=== PATIENT | female | born 1995 | race Caucasian/White ===

== ENCOUNTER 2016-05-11 14:59 | Emergency (ER) | payer OTHER ==
[2016-05-11 15:26] VITALS: BP 140/77
--- NOTE | 2016-05-11 15:48 | ED ---
Neck Pain - HPI Summary HPI Summary: 21 F w/ PMH of arthritis presents with neck pain for 2 weeks. She was thrown off her horse two weeks ago and landed on her right hip. She denies hitting her head, any headache after the incident, nausea or vomiting or LOC. She states that a day later she started to notice neck pain. The pain travels up the back of her neck and into her left shoulder. The pain is greatest off to the side of her neck. She denies any numbness or tingling. She denies any weakness into her arms. She has not taken anything for her pain. She saw her chiropractor yesterday and she states that made the pain worst. She has chronic lower back pain that she says remains unchanged. She denies any hip pain and has been able to ambulate without difficulty. She denies any loss of bowel or bladder or saddle anaesthesia. - History of Current Complaint Chief Complaint: ED Stated Complaint: NECK/BACK PAIN Time Seen by Provider: 05/11/16 15:37 Hx Last Menstrual Period: 05/05/14 Pain Intensity: 7 - Allergies/Home Medications Allergies/Adverse Reactions: Allergies Allergy/AdvReac Type Severity Reaction Status Date / Time Sumatriptan [From Imitrex] Allergy Severe "throat Verified 02/26/14 11:32 feels like it is closing" PMH/Surg Hx/FS Hx/Imm Hx Endocrine/Hematology History: Denies: Hx Diabetes Cardiovascular History: Denies: Hx Hypertension, Hx Pacemaker/ICD Respiratory History: Reports: Hx Asthma Sensory History: Denies: Hx Hearing Aid Psychiatric History: Denies: Hx Panic Disorder Infectious Disease History: No Infectious Disease History: Denies: Traveled Outside the [place] in Last 30 Days - Family History Known Family History: Negative: Cardiac Disease - Social History Alcohol Use: None Substance Use Type: Reports: None Substance Use Comment - Amount & Last Used: couple times per week Smoking Status (MU): Light Every Day Tobacco Smoker Type: Smokeless Tobacco Amount Used/How Often: 1 can per week Length of Time of Smoking/Using Tobacco: 2 months Have You Smoked in the Last Year: Yes Review of Systems Negative: Fever Negative: Chest Pain Negative: Shortness Of Breath Positive: Myalgia - neck pain All Other Systems Reviewed And Are Negative: Yes Physical Exam Triage Information Reviewed: Yes Vital Signs On Initial Exam: Initial Vitals Temp Pulse Resp BP Pulse Ox 99.3 F 88 14 140/77 100 05/11/16 15:10 05/11/16 15:10 05/11/16 15:10 05/11/16 15:10 05/11/16 15:10 Vital Signs Reviewed: Yes Skin: Positive: Warm, Dry Head/Face: Positive: Normal Head/Face Inspection Eyes: Positive: Normal, FRANSICO, Conjunctiva Clear ENT: Positive: Normal ENT inspection, Pharynx normal, TMs normal Respiratory/Lung Sounds: Positive: Clear to Auscultation, Breath Sounds Present Cardiovascular: Positive: Normal, RRR Musculoskeletal: Positive: Strength/ROM Intact - of upper and lower extremities extremities, Limited @ - neck greatest pain with foward flexion, Other - greatest tenderness off to side of neck with some midline tenderness, midline tenderness of thoracic spine, nontender lumbar spine, neg SLR, full ROM of back , good pulses, capillary refill <2 secs Neurological: Positive: Sensory/Motor Intact, Reflexes Intact - biceps Diagnostics - Vital Signs Vital Signs Temp Pulse Resp BP Pulse Ox 05/11/16 15:10 99.3 F 88 14 140/77 100 - Laboratory Lab Statement: Any lab studies that have been ordered have been reviewed, and results considered in the medical decision making process. - Radiology neck and thoracic Xray Interpretation: No Acute Changes Radiology Interpretation Completed By: Radiologist Neck Course/Dx - Course Course Of Treatment: 21 F presents with increased neck pain s/p thrown off horse 2 weeks ago. She states she went to chiropractor yesterday and that made the pain worst. She denies any neuro symptoms. She has some midline tenderness in her thoracic and cervical spine but pain is greatest on lateral aspect of spine, obtained xray which were negative, discussed mostly sprain, will treat conservatively patient agrees with plan - Diagnoses Differential Dx/HQI/PQRI: Positive: Cervical Fracture, Sprain, Strain, Trauma Provider Diagnoses: Neck pain Discharge - Discharge Plan Condition: Good Disposition: HOME Prescriptions: Cyclobenzaprine TAB* [Flexeril TAB*] 10 mg PO TID PRN #9 tab PRN Reason: Pain Patient Education Materials: Cervical Sprain (ED) Referrals: Meliton Ellis MD [Primary Care Provider] - Additional Instructions: Take muscle relaxers three times a day for 3 days Use ibuprofen or Tylenol for pain every 6 hours ice/heat area, move as much as possible Follow up with primary within 5 days if no improvement Return to ED if develop any weakness or numbness in arms or develop any new or worsening symptoms
--- NOTE | 2016-05-11 16:37 | RAD ---
Indication: Neck pain and decreased range of motion post fall from a horse 2 weeks ago. Tingling in both arms. Chronic mid to lower back pain. Comparison: None. Technique: AP, open-mouth odontoid, lateral, and oblique views cervical spine. Report: Straightening relative to normal cervical lordosis without subluxation at any level. Negative for vertebral body or posterior element fracture at any level. Preserved disc spaces. Unremarkable prevertebral soft tissue contours. IMPRESSION: Aside from straightening relative to normal cervical lordosis the examination is normal.
--- NOTE | 2016-05-11 16:40 | RAD ---
Indication: Fall from horse 2 weeks ago. Chronic mid to lower back pain. Comparison: Cervical spine exam of the same date and December 03, 2007 abdomen radiographs. Technique: AP and lateral views centered at the thoracic lumbar junction. Report: Normal mid to distal thoracic and lumbar spine alignment. Negative for vertebral body or posterior element fracture. Preserved disc spaces throughout the [id number]. Unremarkable paraspinal soft tissue contours. IMPRESSION: Negative radiographic exam of the thoracolumbar spine.
== END 2016-05-11 16:53 | disposition home or self-care (01) ==
LOC: ED 14:59
DX: M54.2 Cervicalgia (principal); F17.210 Nicotine dependence, cigarettes, uncomplicated
CPT/HCPCS: 72050; 72080; 99282

== ENCOUNTER 2016-08-02 12:30 | Emergency (ER) | payer SELFPAY ==
[2016-08-02 14:10] VITALS: BP 121/69
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
[2016-08-02] MEDS ORDERED: Ketorolac INJ* 30 MG/ML 1 ML VIAL IM ONE (14:30)
[2016-08-02] MEDS ORDERED: Prochlorperazine TAB* 10 MG PO ONE (14:31)
[2016-08-02] MEDS ORDERED: Prochlorperazine TAB* 5 MG ONE (14:41)
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
== END 2016-08-02 15:18 | disposition home or self-care (01) ==
LOC: UCCORT 12:30
DX: M62.838 Other muscle spasm (principal); G43.909 Migraine, unspecified, not intractable, without status migrainosus; R20.2 Paresthesia of skin; Z88.8 Allergy status to other drugs, medicaments and biological substances; F17.210 Nicotine dependence, cigarettes, uncomplicated
CPT/HCPCS: 72050; 96372; 99212; A9270-GY; G0463; J1885; Q0164

== ENCOUNTER 2017-04-24 15:02 | Emergency (ER) | payer OTHER ==
[2017-04-24] MEDS ORDERED: Acetaminophen TAB* 325 MG PO ONE (16:12)
[2017-04-24 17:01] LABS: ABS Basophils 0.1 10^3/ul (0-0.2); ABS Eosinophils 0.1 10^3/ul (0-0.6); ABS Lymphocytes 2.2 10^3/ul (1.0-4.8); ABS Monocytes 0.7 10^3/ul (0-0.8); ABS Nucleated RBC 0 10^3/ul; Eosinophil % 1.1 % (0-6); Hematocrit 41 % (35-47); Hemoglobin 13.7 g/dl (12.0-16.0); Lymphocyte % 19.6 % (25-47); Mean Corpuscular HGB Conc 34 g/dl (31-36); Mean Corpuscular Hemoglobin 30 pg (27-31); Mean Corpuscular Volume 90 fL (80-97); Mean Platelet Volume 7 um3 (7.4-10.4); Nucleated Red Blood Cells % 0; Platelet Count 310 10^3/ul (150-450); Red Blood Count 4.52 10^6/ul (4.0-5.4); Red Cell Distribution Width 13 % (10.5-15); White Blood Count 11.1 10^3/ul (3.5-10.8)
--- NOTE | 2017-04-24 17:11 | RAD ---
Indication: 5 days predominant LEFT crampy abdominal pain and bleeding. Comparison: No relevant prior exams available on the [facility] [place]. Technique: Transvaginal pelvic ultrasound. Report: 7.1 x 2.8 x 3.7 cm anteverted uterus with suggestion of potential arcuate variant morphology. 3.4 mm endometrium. Small volume of fluid present within the endometrial cavity. No focal endometrial or myometrial lesions evident. Negative for free fluid. 3.2 x 2.7 x 1.9 cm RIGHT ovary with documented vascular flow is remarkable for small follicles only. 3.2 x 2.0 x 1.7 cm LEFT ovary with documented vascular flow is remarkable for small follicles only. No visualized extra ovarian adnexal region lesions. IMPRESSION: 1. No acute abnormality of the uterus or adnexal regions evident. 2. Suggestion of potential normal variant arcuate morphology of the uterus.
[2017-04-24 17:13] LABS: INR 0.84 (0.77-1.02)
[2017-04-24 17:18] LABS: EGFR Non-African American 103.9 (>60)
[2017-04-24] MEDS ORDERED: Ketorolac INJ* 60 MG/2 ML VIAL IM ONE (18:35)
[2017-04-24 19:52] LABS: Urine Appearance Clear; Urine Blood 2+ (Negative); Urine Color Yellow; Urine Ketones Trace (Negative); Urine Protein Negative (Negative); Urine Specific Gravity 1.014 (1.010-1.030); Urine Urobilinogen Negative (Negative)
[2017-04-24] MEDS ORDERED: HYDROcodone/ACETAMIN 5-325 MG* 1 TAB PO ONE (20:04)
[2017-04-24 20:32] VITALS: BP 122/72
--- NOTE | 2017-05-05 12:41 | ED ---
GI/ HPI - HPI Summary HPI Summary: Patient presents to the ED with CC of cramping with her menses. She is currently on her menses and states she is having terrible 9/10 pain bilaterally. Denies N/V/C/D. She currently takes OCP and normally her period is regularly. LMP was 2 weeks ago and not due for another 2 weeks. She notes to worsening bleeding compare to her usual menstural period, but denies soaking through pads. Denies chance of . No history of ectopic or tubal ligation. Not on blood thinners and no recent travel or calf pain. She has been otherwise healthy and denies any other health problems. - History of Current Complaint Chief Complaint: EDOBProblems Time Seen by Provider: 04/24/17 15:55 Stated Complaint: ABD/BACK PAIN Hx Obtained From: Patient Hx Last Menstrual Period: 07/11/16 Onset/Duration: Started Hours Ago Timing: Constant Severity: Moderate Current Severity: Moderate Vaginal Bleeding Description: Bright Red Number of Pads per Day: 2 Pain Intensity: 6 Location of Pain: Diffuse Pain Characteristics: Cramping Associated Signs and Symptoms: Positive: Abdominal Pain Additional Signs & Symptoms: Positive: Vaginal Bleeding, Menses Irregular. Negative: Vaginal Discharge Aggravating Factor(s): Nothing Alleviating Factor(s): Nothing - Allergy/Home Medications Allergies/Adverse Reactions: Allergies Allergy/AdvReac Type Severity Reaction Status Date / Time Sumatriptan [From Imitrex] Allergy Severe "throat Verified 08/02/16 14:10 feels like it is closing" PMH/Surg Hx/FS Hx/Imm Hx Previously Healthy: Yes Endocrine/Hematology History: Denies: Hx Diabetes Cardiovascular History: Denies: Hx Hypertension, Hx Pacemaker/ICD Respiratory History: Reports: Hx Asthma Sensory History: Denies: Hx Hearing Aid Psychiatric History: Denies: Hx Panic Disorder - Immunization History Hx Pertussis Vaccination: No Immunizations Up to Date: Unable to Obtain/Confirm Infectious Disease History: No Infectious Disease History: Denies: Traveled Outside the [place] in Last 30 Days - Family History Known Family History: Negative: Cardiac Disease - Social History Occupation: Employed Full-time Alcohol Use: Occasionally Hx Substance Use: No Substance Use Type: Reports: None Substance Use Comment - Amount & Last Used: couple times per week Hx Tobacco Use: Yes Smoking Status (MU): Heavy Every Day Tobacco Smoker Type: Smokeless Tobacco Amount Used/How Often: 1ppd Length of Time of Smoking/Using Tobacco: 2 months Have You Smoked in the Last Year: Yes Review of Systems Constitutional: Negative Negative: Fever, Chills, Fatigue, Skin Diaphoresis Eyes: Negative Cardiovascular: Negative Respiratory: Negative Positive: Abdominal Pain, Other - vaginal bleeding Positive: no symptoms reported, see HPI Musculoskeletal: Negative Neurological: Negative Psychological: Normal All Other Systems Reviewed And Are Negative: Yes Physical Exam Triage Information Reviewed: Yes Vital Signs On Initial Exam: Initial Vitals Temp Pulse Resp BP Pulse Ox 98.2 F 99 18 125/93 99 04/24/17 15:08 04/24/17 15:08 04/24/17 15:08 04/24/17 15:08 04/24/17 15:08 Vital Signs Reviewed: Yes Appearance: Positive: Well-Appearing, No Pain Distress, Well-Nourished Skin: Positive: Warm, Skin Color Reflects Adequate Perfusion Head/Face: Positive: Normal Head/Face Inspection Eyes: Positive: EOMI, FRANSICO, Conjunctiva Clear Neck: Positive: Supple, Nontender, No Lymphadenopathy Respiratory/Lung Sounds: Positive: Clear to Auscultation, Breath Sounds Present Cardiovascular: Positive: RRR, Pulses are Symmetrical in both Upper and Lower Extremities Abdomen Description: Positive: Soft, Other: - pain on deep palpation of the bilateral lower quadrants without radiation, negtaive murphys, negative psoas, negative rovsings Musculoskeletal: Positive: Normal, Strength/ROM Intact Neurological: Positive: Speech Normal Psychiatric: Positive: Normal, Affect/Mood Appropriate AVPU Assessment: Alert - Cooper Coma Scale Coma Scale Total: 15 Diagnostics - Vital Signs Vital Signs Temp Pulse Resp BP Pulse Ox 04/24/17 20:30 99 F 72 16 122/72 99 04/24/17 19:43 99 F 74 16 114/72 98 04/24/17 15:08 98.2 F 99 18 125/93 99 - Laboratory Lab Results: Lab Results 04/24/17 04/24/17 04/24/17 Range/Units 16:55 16:55 16:55 WBC 11.1 H (3.5-10.8) 10^3/ul RBC 4.52 (4.0-5.4) 10^6/ul Hgb 13.7 (12.0-16.0) g/dl Hct 41 (35-47) % MCV 90 (80-97) fL MCH 30 (27-31) pg MCHC 34 (31-36) g/dl RDW 13 (10.5-15) % Plt Count 310 (150-450) 10^3/ul MPV 7 L (7.4-10.4) um3 Neut % (Auto) 72.5 (38-83) % Lymph % (Auto) 19.6 L (25-47) % [place] % (Auto) 6.3 (1-9) % Eos % (Auto) 1.1 (0-6) % Baso % (Auto) 0.5 (0-2) % Absolute Neuts (auto) 8.0 H (1.5-7.7) 10^3/ul Absolute Lymphs (auto) 2.2 (1.0-4.8) 10^3/ul Absolute Monos (auto) 0.7 (0-0.8) 10^3/ul Absolute Eos (auto) 0.1 (0-0.6) 10^3/ul Absolute Basos (auto) 0.1 (0-0.2) 10^3/ul Absolute Nucleated RBC 0 10^3/ul Nucleated RBC % 0 ESR 7 (0-14) mm/Hr INR (Anticoag Therapy) 0.84 (0.77-1.02) Sodium 136 (133-145) mmol/L Potassium 3.6 (3.5-5.0) mmol/L Chloride 104 (101-111) mmol/L Carbon Dioxide 24 (22-32) mmol/L Anion Gap 8 (2-11) mmol/L BUN 9 (6-24) mg/dL Creatinine 0.71 (0.51-0.95) mg/dL Est GFR ( Amer) 133.6 (>60) Est GFR (Non-Af Amer) 103.9 (>60) BUN/Creatinine Ratio 12.7 (8-20) Glucose 93 (70-100) mg/dL Lactic Acid (0.5-2.0) mmol/L Calcium 9.3 (8.6-10.3) mg/dL Total Bilirubin 0.80 (0.2-1.0) mg/dL AST 17 (13-39) U/L ALT 14 (7-52) U/L Alkaline Phosphatase 43 (34-104) U/L C-React Prot High Sens 0.58 mg/L Total Protein 7.5 (6.4-8.9) g/dL Albumin 4.5 (3.2-5.2) g/dL Globulin 3.0 (2-4) g/dL Albumin/Globulin Ratio 1.5 (1-3) Beta HCG, Quant < 0.60 mIU/mL Urine Color Urine Appearance Urine pH (5-9) Ur Specific [place] (1.010-1.030) Urine Protein (Negative) Urine Ketones (Negative) Urine Blood (Negative) Urine Nitrate (Negative) Urine Bilirubin (Negative) Urine Urobilinogen (Negative) Ur Leukocyte Esterase (Negative) Urine WBC (Auto) (Absent) Urine RBC (Auto) (Absent) Ur Squamous Epith Cells (Absent) Urine Bacteria (Absent) Urine Glucose (Negative) 04/24/17 04/24/17 Range/Units 16:55 19:35 WBC (3.5-10.8) 10^3/ul RBC (4.0-5.4) 10^6/ul Hgb (12.0-16.0) g/dl Hct (35-47) % MCV (80-97) fL MCH (27-31) pg MCHC (31-36) g/dl RDW (10.5-15) % Plt Count (150-450) 10^3/ul MPV (7.4-10.4) um3 Neut % (Auto) (38-83) % Lymph % (Auto) (25-47) % [place] % (Auto) (1-9) % Eos % (Auto) (0-6) % Baso % (Auto) (0-2) % Absolute Neuts (auto) (1.5-7.7) 10^3/ul Absolute Lymphs (auto) (1.0-4.8) 10^3/ul Absolute Monos (auto) (0-0.8) 10^3/ul Absolute Eos (auto) (0-0.6) 10^3/ul Absolute Basos (auto) (0-0.2) 10^3/ul Absolute Nucleated RBC 10^3/ul Nucleated RBC % ESR (0-14) mm/Hr INR (Anticoag Therapy) (0.77-1.02) Sodium (133-145) mmol/L Potassium (3.5-5.0) mmol/L Chloride (101-111) mmol/L Carbon Dioxide (22-32) mmol/L Anion Gap (2-11) mmol/L BUN (6-24) mg/dL Creatinine (0.51-0.95) mg/dL Est GFR ( Amer) (>60) Est GFR (Non-Af Amer) (>60) BUN/Creatinine Ratio (8-20) Glucose (70-100) mg/dL Lactic Acid 0.9 (0.5-2.0) mmol/L Calcium (8.6-10.3) mg/dL Total Bilirubin (0.2-1.0) mg/dL AST (13-39) U/L ALT (7-52) U/L Alkaline Phosphatase (34-104) U/L C-React Prot High Sens mg/L Total Protein (6.4-8.9) g/dL Albumin (3.2-5.2) g/dL Globulin (2-4) g/dL Albumin/Globulin Ratio (1-3) Beta HCG, Quant mIU/mL Urine Color Yellow Urine Appearance Clear Urine pH 6.0 (5-9) Ur Specific [place] 1.014 (1.010-1.030) Urine Protein Negative (Negative) Urine Ketones Trace H (Negative) Urine Blood 2+ H (Negative) Urine Nitrate Negative (Negative) Urine Bilirubin Negative (Negative) Urine Urobilinogen Negative (Negative) Ur Leukocyte Esterase Negative (Negative) Urine WBC (Auto) Trace(0-5/hpf) (Absent) Urine RBC (Auto) 1+(3-5/hpf) H (Absent) Ur Squamous Epith Cells Present H (Absent) Urine Bacteria 1+ H (Absent) Urine Glucose Negative (Negative) Result Diagrams: 04/24/17 16:55 04/24/17 16:55 Lab Statement: Any lab studies that have been ordered have been reviewed, and results considered in the medical decision making process. GIGU Course/Dx - Course Course Of Treatment: Patient is evaluated for pain with menses. While bilateral pain is present, US obtained to evaluate for torsion or other emergent pathology. Negative for acute findings. She is encouraged to follow up with our OBGYN. Pain is controlled while in ED with tylenol, toradol and norco. Medication prescription sent for toradol. Negative . No other findings on labs and H and H OK. OBGYN follow up referral given. Discussed treatment options available to the patient. They understand at this time and voice no concerns over discharge plan. Return precautions are explained in depth and patient agrees to follow up to OBGYN. - Diagnoses Differential Diagnoses - Female: Endometriosis Provider Diagnoses: Dysmenorrhea Discharge - Discharge Plan Condition: Stable Disposition: HOME Prescriptions: Ketorolac TAB * [Toradol TAB *] 10 mg PO Q6H #16 tab Patient Education Materials: Dysmenorrhea (ED), Menorrhagia (ED) Referrals: Meliton Ellis MD [Primary Care Provider] - Janes Mas MD [Medical Doctor] - Additional Instructions: Please follow up with OBGYN If you develop worsening symptoms, return to the ED I have given you Toradol - take up to 4 times daily as needed for pain
== END 2017-04-24 20:31 | disposition home or self-care (01) ==
LOC: ED 15:02
DX: N94.6 Dysmenorrhea, unspecified (principal); F17.290 Nicotine dependence, other tobacco product, uncomplicated; Z88.8 Allergy status to other drugs, medicaments and biological substances
CPT/HCPCS: 36415; 76830; 80053; 81003; 81015; 83605; 84702; 85025; 85610; 85652; 86141; 87086; 96372; 99283; A9270-GY; J1885

== ENCOUNTER 2017-06-23 18:05 | Emergency (ER) | payer OTHER ==
[2017-06-23 18:54] LABS: ABS Basophils 0 10^3/ul (0-0.2); ABS Eosinophils 0.1 10^3/ul (0-0.6); ABS Lymphocytes 1.7 10^3/ul (1.0-4.8); ABS Monocytes 0.7 10^3/ul (0-0.8); ABS Neutrophils 6.3 10^3/ul (1.5-7.7); ABS Nucleated RBC 0 10^3/ul; Eosinophil % 1.5 % (0-6); Hematocrit 38 % (35-47); Hemoglobin 13.3 g/dl (12.0-16.0); Lymphocyte % 18.9 % (25-47); Mean Corpuscular HGB Conc 35 g/dl (31-36); Mean Corpuscular Hemoglobin 31 pg (27-31); Mean Corpuscular Volume 90 fL (80-97); Mean Platelet Volume 7 um3 (7.4-10.4); Nucleated Red Blood Cells % 0; Platelet Count 279 10^3/ul (150-450); Red Blood Count 4.27 10^6/ul (4.0-5.4); Red Cell Distribution Width 13 % (10.5-15); White Blood Count 8.8 10^3/ul (3.5-10.8)
[2017-06-23 19:08] LABS: EGFR Non-African American 82.2 (>60)
[2017-06-23 19:32] VITALS: BP 127/80
--- NOTE | 2017-06-23 22:13 | ED ---
Abdominal Pain/Female - HPI Summary HPI Summary: Patient presents from [address] [place] [address] urgent care with chief complaint of left upper quadrant pain and cramping. She states she gets this once a month around her period. Her menstrual cycle is due in 1 day and she is unable to take the pain anymore. She has been taking ibuprofen and Tylenol without relief. She has been using heat packs without relief. She states she has stayed home from work for the past 2 days due to her cramping. She denies any other symptoms including fevers, sweats, chills, headache, nausea, vomiting, diarrhea, constipation. Denies any urinary symptoms or back pain. She states this is usual for her. She is otherwise healthy. - History of Current Complaint Chief Complaint: EDAbdPain Stated Complaint: ABD PAIN Time Seen by Provider: 06/23/17 18:48 Hx Obtained From: Patient Hx Last Menstrual Period: 07/11/16 ?: No Onset/Duration: Sudden Onset Timing: Constant Severity Initially: Moderate Severity Currently: Moderate Pain Intensity: 0 Pain Scale Used: 0-10 Numeric Location: Discrete At: LUQ Radiates: No Character: Sharp, Cramping Aggravating Factor(s): Nothing Alleviating Factor(s): Nothing Associated Signs and Symptoms: Positive: Negative - Risk Factors Ectopic Risk Factor: Negative Ovarian Torsion Risk Factor: Reproductive Age Allergies/Adverse Reactions: Allergies Allergy/AdvReac Type Severity Reaction Status Date / Time MS Sumatriptan [From Imitrex] Allergy Severe "throat Verified 08/02/16 14:10 feels like it is closing" PMH/Surg Hx/FS Hx/Imm Hx Previously Healthy: Yes Endocrine/Hematology History: Denies: Hx Diabetes Cardiovascular History: Denies: Hx Hypertension, Hx Pacemaker/ICD Respiratory History: Reports: Hx Asthma Sensory History: Denies: Hx Hearing Aid Psychiatric History: Denies: Hx Panic Disorder - Immunization History Hx Pertussis Vaccination: No Immunizations Up to Date: Unable to Obtain/Confirm Infectious Disease History: No Infectious Disease History: Denies: Traveled Outside the [place] in Last 30 Days - Family History Known Family History: Negative: Cardiac Disease - Social History Occupation: Employed Full-time Lives: With Family Alcohol Use: Occasionally Hx Substance Use: No Substance Use Type: Reports: None Substance Use Comment - Amount & Last Used: couple times per week Hx Tobacco Use: Yes Smoking Status (MU): Heavy Every Day Tobacco Smoker Type: Smokeless Tobacco Amount Used/How Often: 1ppd Length of Time of Smoking/Using Tobacco: 2 months Have You Smoked in the Last Year: Yes Review of Systems Constitutional: Negative Negative: Fever, Chills, Fatigue, Skin Diaphoresis Eyes: Negative Cardiovascular: Negative Positive: Abdominal Pain Positive: no symptoms reported, see HPI Musculoskeletal: Negative Skin: Negative All Other Systems Reviewed And Are Negative: Yes Physical Exam Triage Information Reviewed: Yes Vital Signs On Initial Exam: Initial Vitals Temp Pulse Resp BP Pulse Ox 97.2 F 97 16 130/80 99 06/23/17 18:06 06/23/17 18:06 06/23/17 18:06 06/23/17 18:06 06/23/17 18:06 Vital Signs Reviewed: Yes Appearance: Positive: Well-Appearing Skin: Positive: Warm, Skin Color Reflects Adequate Perfusion Head/Face: Positive: Normal Head/Face Inspection Eyes: Positive: EOMI, FRANSICO, Conjunctiva Clear Neck: Positive: Supple, No Lymphadenopathy Respiratory/Lung Sounds: Positive: Clear to Auscultation, Breath Sounds Present Cardiovascular: Positive: RRR, Pulses are Symmetrical in both Upper and Lower Extremities Abdomen Description: Positive: No Organomegaly, Soft, Other: - Tenderness to the left upper quadrant. Negative: CVA Tenderness (R), CVA Tenderness (L), McBurney's Point Tenderness, Peritoneal Signs, Pulsatile Mass, Splenomegaly Musculoskeletal: Positive: Normal, Strength/ROM Intact Neurological: Positive: Speech Normal Psychiatric: Positive: Normal, Affect/Mood Appropriate AVPU Assessment: Alert Diagnostics - Vital Signs Vital Signs Temp Pulse Resp BP Pulse Ox 06/23/17 19:31 99.6 F 86 16 127/80 99 06/23/17 19:00 81 100 06/23/17 18:30 85 131/83 99 06/23/17 18:23 105 98 06/23/17 18:20 138/79 06/23/17 18:06 97.2 F 97 16 130/80 99 - Laboratory Lab Results: Lab Results 06/23/17 06/23/17 06/23/17 Range/Units 18:45 18:45 18:45 WBC 8.8 (3.5-10.8) 10^3/ul RBC 4.27 (4.0-5.4) 10^6/ul Hgb 13.3 (12.0-16.0) g/dl Hct 38 (35-47) % MCV 90 (80-97) fL MCH 31 (27-31) pg MCHC 35 (31-36) g/dl RDW 13 (10.5-15) % Plt Count 279 (150-450) 10^3/ul MPV 7 L (7.4-10.4) um3 Neut % (Auto) 71.7 (38-83) % Lymph % (Auto) 18.9 L (25-47) % Adams % (Auto) 7.5 H (0-7) % Eos % (Auto) 1.5 (0-6) % Baso % (Auto) 0.4 (0-2) % Absolute Neuts (auto) 6.3 (1.5-7.7) 10^3/ul Absolute Lymphs (auto) 1.7 (1.0-4.8) 10^3/ul Absolute Monos (auto) 0.7 (0-0.8) 10^3/ul Absolute Eos (auto) 0.1 (0-0.6) 10^3/ul Absolute Basos (auto) 0 (0-0.2) 10^3/ul Absolute Nucleated RBC 0 10^3/ul Nucleated RBC % 0 Sodium 137 (133-145) mmol/L Potassium 3.6 (3.5-5.0) mmol/L Chloride 103 (101-111) mmol/L Carbon Dioxide 24 (22-32) mmol/L Anion Gap 10 (2-11) mmol/L BUN 8 (6-24) mg/dL Creatinine 0.87 (0.51-0.95) mg/dL Est GFR ( Amer) 105.7 (>60) Est GFR (Non-Af Amer) 82.2 (>60) BUN/Creatinine Ratio 9.2 (8-20) Glucose 106 H (70-100) mg/dL Lactic Acid 2.4 H* (0.5-2.0) mmol/L Calcium 10.4 H (8.6-10.3) mg/dL Total Bilirubin 0.70 (0.2-1.0) mg/dL AST 16 (13-39) U/L ALT 14 (7-52) U/L Alkaline Phosphatase 37 (34-104) U/L C-Reactive Protein 1.86 (< 5.00) mg/L Total Protein 7.7 (6.4-8.9) g/dL Albumin 4.5 (3.2-5.2) g/dL Globulin 3.2 (2-4) g/dL Albumin/Globulin Ratio 1.4 (1-3) Result Diagrams: 06/23/17 18:45 06/23/17 18:45 Lab Statement: Any lab studies that have been ordered have been reviewed, and results considered in the medical decision making process. Abdominal Pain Fem Course/Dx - Course Course Of Treatment: During the course of treatment, the patient is evaluated for left upper quadrant pain and cramping. She was sent here from [address] [place] [address] urgent care. I have received baseline labs on her which were unremarkable. I discussed with her treatment options. I've advised due to this being a recurrent monthly problem for her surrounding her menstrual cycle, is most likely due to this, and she agrees. I do not think any imaging is warranted at this time. I have given her pain medication and a note for work. She is to continue ibuprofen and Tylenol and heat pads to the area. I have advised she seek the help of an CHAIR. - Diagnoses Differential Diagnosis: Positive: Bowel Obstruction, Peptic Ulcer Disease Provider Diagnoses: Menstrual cramp Is Visit Related: No Discharge - Discharge Plan Condition: Stable Disposition: HOME Prescriptions: HYDROcodone/ACETAMIN 5-325 MG* [[place] 5-325 TAB*] 1 tab PO Q4H PRN #12 tab MDD 6 PRN Reason: Pain Forms: *Work Release Referrals: Meliton Ellis MD [Primary Care Provider] - Additional Instructions: Ibuprofen and Tylenol intermittently for cramping Moist heat to the abdomen For any pain not relieved with Tylenol and ibuprofen, you may use the pain medication for relief
== END 2017-06-23 19:31 | disposition home or self-care (01) ==
LOC: ED 18:05
DX: N94.6 Dysmenorrhea, unspecified (principal); F17.200 Nicotine dependence, unspecified, uncomplicated; Z88.8 Allergy status to other drugs, medicaments and biological substances
CPT/HCPCS: 36415; 80053; 83605; 85025; 86140; 99282

== ENCOUNTER 2018-10-23 15:26 | Emergency (ER) | payer OTHER ==
[2018-10-23] MEDS ORDERED: NS 0.9% 1000 ML** 1,000 ML IV ONE (20:12)
[2018-10-23] MEDS ORDERED: diPHENhydraMINE IV* 50 MG/ML 1 ml VIAL (BENADRYL) SLOW PUSH ONE (20:12)
[2018-10-23] MEDS ORDERED: Ketorolac INJ* 30 MG/ML 1 ML VIAL IV PUSH ONE (20:12)
[2018-10-23] MEDS ORDERED: Metoclopramide IV* 5 MG/ML 2 ML VIAL IV SLOW PU ONE (20:12)
--- NOTE | 2018-10-23 20:14 | ED ---
Headache - HPI Summary HPI Summary: This patient is a 23 year old female presenting to [facility] with a chief complaint of migraines for one week. The patient states she normally gets migraines monthly and takes naproxen for it but has had added symptoms of neck stiffness, nausea, and vomiting. She also reports photophobia which is a regular symptom for her. She rates her pain 8/10 in severity. - History Of Current Complaint Chief Complaint: EDHeadache Stated Complaint: HEADACHE AND NECK PAIN PER PT Time Seen by Provider: 10/23/18 20:08 Hx Obtained From: Patient Hx Last Menstrual Period: 07/11/16 Onset/Duration: Started weeks ago Initially Headache Was: Initial Pain Scale(0-10)= - 8 Currently Pain Is: Current Pain Scale(0-10)= - 8 Timing: Constant Associated Signs And Symptoms: Nausea, Vomiting, Neck Stiffness - Allergies/Home Medications Allergies/Adverse Reactions: Allergies Allergy/AdvReac Type Severity Reaction Status Date / Time sumatriptan Allergy Swelling Verified 10/23/18 15:41 Of Face,Lips,& Throat PMH/Surg Hx/FS Hx/Imm Hx Endocrine/Hematology History: Denies: Hx Diabetes Cardiovascular History: Denies: Hx Hypertension, Hx Pacemaker/ICD Respiratory History: Reports: Hx Asthma Sensory History: Denies: Hx Hearing Aid Psychiatric History: Denies: Hx Panic Disorder Infectious Disease History: No Infectious Disease History: Denies: Traveled Outside the [place] in Last 30 Days - Family History Known Family History: Negative: Cardiac Disease - Social History Alcohol Use: Occasionally Hx Substance Use: No Substance Use Type: Reports: None Substance Use Comment - Amount & Last Used: couple times per week Hx Tobacco Use: Yes Smoking Status (MU): Heavy Every Day Tobacco Smoker Type: Smokeless Tobacco Amount Used/How Often: 1ppd Length of Time of Smoking/Using Tobacco: 2 months Have You Smoked in the Last Year: Yes Review of Systems Positive: Photophobia Positive: Vomiting, Nausea Positive: Other - Neck Stiffness Positive: Headache All Other Systems Reviewed And Are Negative: Yes Physical Exam - Summary Physical Exam Summary: VITAL SIGNS: Reviewed. GENERAL: Patient is a well-developed and nourished FEMALE who is lying comfortable in the stretcher. Patient is not in any acute respiratory distress. HEAD AND FACE: No signs of trauma. No ecchymosis, hematomas or skull depressions. No sinus tenderness. EYES: PERRLA, EOMI x 2, No injected conjunctiva, no nystagmus. EARS: Hearing grossly intact. Ear canals and tympanic membranes are within normal limits. MOUTH: Oropharynx within normal limits. NECK: Supple, trachea is midline, no adenopathy, no JVD, no carotid bruit, no c- spine tenderness, neck with full ROM CHEST: Symmetric, no tenderness at palpation LUNGS: Clear to auscultation bilaterally. No wheezing or crackles. CVS: Regular rate and rhythm, S1 and S2 present, no murmurs or gallops appreciated. ABDOMEN: Soft, non-tender. No signs of distention. No rebound no guarding, and no masses palpated. Bowel sounds are normal. EXTREMITIES: FROM in all major joints, no edema, no cyanosis or clubbing. NEURO: Alert and oriented x 3. No acute neurological deficits. Speech is normal and follows commands. SKIN: Dry and warm Triage Information Reviewed: Yes Vital Signs On Initial Exam: Initial Vitals Temp Pulse Resp BP Pulse Ox 98.8 F 75 16 128/92 99 10/23/18 15:38 10/23/18 15:38 10/23/18 15:38 10/23/18 15:38 10/23/18 15:38 Vital Signs Reviewed: Yes Diagnostics - Vital Signs Vital Signs Temp Pulse Resp BP Pulse Ox 10/23/18 19:45 98.1 F 64 16 104/53 100 10/23/18 17:25 98.6 F 69 18 116/58 100 10/23/18 15:38 98.8 F 75 16 128/92 99 - Laboratory Lab Statement: Any lab studies that have been ordered have been reviewed, and results considered in the medical decision making process. Headache Course/Dx - Course Course Of Treatment: This patient is a 23 year old female presenting to [facility] with a chief complaint of migraines for one week. Physical exam was unremarkable. Patient was given pain medication and a plan for discharge was discussed with the patient and she was agreeable with this plan. - Diagnoses Provider Diagnoses: Headache Discharge - Sign-Out/Discharge Documenting (check all that apply): Patient Departure - Discharge Patient Received Moderate/Deep Sedation with Procedure: No - Discharge Plan Condition: Stable Disposition: HOME Patient Education Materials: Migraine Headache (ED) Referrals: Meliton Ellis MD [Primary Care Provider] - Additional Instructions: Return to ED with any new or worsening symptoms. - Attestation Statements Document Initiated by Scribe: Yes Documenting Scribe: Juan Sanchez Provider For Whom Scribe is Documenting (Include Credential): Cinthia Rodriguez MD Scribe Attestation: IJuan, scribed for Cinthia Rodriguez MD on 10/23/18 at 2102. Status of Scribe Document: Ready
[2018-10-23 22:08] VITALS: BP 110/70
== END 2018-10-23 22:07 | disposition home or self-care (01) ==
LOC: ED 15:26
DX: R51 Headache (principal); F17.210 Nicotine dependence, cigarettes, uncomplicated; Z88.8 Allergy status to other drugs, medicaments and biological substances
CPT/HCPCS: 96374; 96375; 99282; J1200; J1885; J2765